=== PATIENT | male | born 1945 | race Caucasian/White ===

== ENCOUNTER 2016-02-15 09:02 | Emergency (ER) | payer OTHER ==
[~2016-02-15] VITALS: Ht 165.1 cm; Wt 77.0 kg
[~2016-02-15 09:02] MED LIST: ENBREL50 MG/1 ML SQ
[2016-02-15] MEDS ORDERED: NAPROXEN500 MG PO (12:06)
[2016-02-15] MEDS ORDERED: FLEXERIL10 MG PO (12:06)
[2016-02-15] MEDS ORDERED: LIDODERM 5% P1 PATCH TD (12:07)
[2016-02-15 12:19] VITALS: BP 168/96
== END 2016-02-15 12:23 | disposition home or self-care (01) ==
LOC: EME 09:02
DX: S39.012A Strain of muscle, fascia and tendon of lower back, initial encounter (principal); X58.XXXA Exposure to other specified factors, initial encounter
CPT/HCPCS: 99281; 99284